=== PATIENT | female | born 1960 | race American Indian/Alaskan Native ===

== ENCOUNTER 2021-01-02 11:03 | Outpatient (CLI) | payer OTHER ==
--- NOTE | 2021-01-02 12:50 | Mammography Report ---
RIGHT DIAGNOSTIC MAMMOGRAM INDICATION: Status post right breast biopsy. COMPARISON: Outside imaging 11/21/2020. FINDINGS: Right breast CC and LM projection mammograms were obtained. These document a U-shaped biops y marker at the site of mammographic finding noted on outside imaging. The biopsy marker appears appr opriately positioned. IMPRESSION: Right breast mammographic images documenting the location of a U-shaped biopsy marker at site of rece nt ultrasound-guided core biopsy in the right breast at the 11:00 position. BI-RADS Category 4: Suspicious for Malignancy. Signer Name: Ephraim Meléndez MD Signed: 01/02/2021 12:46 PM Workstation Name: [id number]
--- NOTE | 2021-01-02 13:17 | Ultrasound Report ---
ULTRASOUND-GUIDED CORE NEEDLE BIOPSY Right BREAST WITH CLIP PLACEMENT INDICATION: Right breast mass at the 11:00 position. COMPARISON: Outside imaging 12/04/2020. FINDINGS: Initially, a targeted ultrasound of the right breast was performed at the 11:00 position (site of rep orted finding noted on outside imaging). Located at the 11:00 position, 7 cm from the nipple, there i s a poorly defined 1.6 x 0.8 x 0.9 cm hypoechoic area. This may be larger in size as it is difficult to distinguish its borders. The report describes a mass at the 11:00 position, 3 cm from the nipple, this was evaluated by the clearing hand and Dr. Meléndez and no additional findings were noted closer to the nipple. Informed consent was obtained. The lesion within the left breast at the 11:00 position was identified with ultrasound. The overlying skin was cleansed with chloro prep and local anesthesia was obtained with a 1% lidocaine solution. Under ultrasound guidance a 14-gauge spring loaded core biopsy needle w as advanced to the lesion. A total of 4 core samples were obtained. A U-shaped biopsy marker was plac ed to bala the site of the biopsy. Specimen samples were placed in formalin and sent to pathology for analysis. Patient tolerated the procedure well and no immediate complications were identified. A post procedure mammogram demonstrates accurate placement of the biopsy marker. IMPRESSION: Technically successful ultrasound-guided core biopsy of right breast lesion at the 11:00 position wit h placement of a U-shaped biopsy marker. An addendum will be added to this report once pathology results are available. Signer Name: Ephraim Meléndez MD Signed: 01/02/2021 1:13 PM Workstation Name: [id number]
== END 2021-01-02 11:04 | disposition home or self-care (01) ==
LOC: SPVWC 11:03
PROVIDERS: ATTEND Internal Medicine
DX: N63.11 Unspecified lump in the right breast, upper outer quadrant (principal); R92.8 Other abnormal and inconclusive findings on diagnostic imaging of breast; Z79.899 Other long term (current) drug therapy
CPT/HCPCS: 88305; 88341; 88342; 88368